=== PATIENT | male | born 1960 | race Caucasian/White ===

== ENCOUNTER → 2019-10-04 12:05 | Outpatient (CLI) | payer SELFPAY ==
[2019-10-04 12:32] LABS: Bacteria 0 SEEN /hpf (None Seen); Mucous, Urine 0 SEEN /hpf (<or=2+); Red Blood Cells-Urine 0 SEEN /hpf (0-5); White Blood Cells 0 SEEN /hpf (0-5)
[2019-10-04 15:07] LABS: Absolute Lymphocyte Count 2.71 X10^3/uL (0.83-4.51); Basophil# 0.03 X10^3/uL; Basophil% 0.5 % (0-1); Eosinophil# 0.08 X10^3/uL; Eosinophils% 1.2 % (0-5); Hematocrit 49.5 % (40-54); Hemoglobin 16.7 g/dL (13.0-16.5); Lymphocyte # 2.71 X10^3/ul (4.0); Lymphocyte % 42.1 % (19-41); Mean Corp Hgb Conc 33.7 g/dL (32-36); Mean Corpuscular Volume 88.9 fL (80-94); Mean Platelet Vol. 9.8 fl (6.2-12.0); Monocyte# 0.62 X10^3/uL; Monocyte% 9.6 % (0-10); NRBC Flagged by Analyzer 0 % (0-5); Neutrophil # 2.98 X10^3/uL (2.7-7.7); Neutrophil % 46.4 % (47-70); Platelet Count 294 K/mm3 (150-450); RBC Distribution Width CV 12.3 % (11.6-14.6); RBC Distribution Width SD 39.8 fl (35.1-43.9); Red Blood Count 5.57 M/mm3 (4.6-6.2); White Blood Count 6.4 K/mm3 (4.4-11.0)
[2019-10-04 15:09] LABS: Color, Urine Yellow (Yellow); Glucose, Dipstick Normal (Normal); Ketone-Dipstick Negative (Negative); Leukocyte Esterase-Dipstick Negative /ul (Negative); Nitrite-Dipstick Negative (Negative); Occult Blood-Urine Negative /ul (Negative); Protein-Dipstick Negative (Negative); Urine Bilirubin Dipstick Negative (Negative); Urine Clarity Sl. Cloudy (Clear); Urine Urobilinogen Normal (Normal)
[2019-10-04 15:19] LABS: Squamous Epithelial Cells - UA 0-5 SEEN /hpf (0-5)
[2019-10-04 15:37] LABS: AST(SGOT) 22 U/L (15-37); Alanine Aminotransfer ALT/SGPT 38 U/L (16-61); Albumin, Serum 3.9 g/dL (3.2-5.0); Alkaline Phosphatase 86 U/L (45-117); Anion Gap 8 (5-15); BUN 13 mg/dL (7-18); BUN/Creat Ratio 11.4 RATIO (10-20); Calcium,Total 9.1 mg/dL (8.5-10.1); Chloride 105 mmol/L (98-107); Creatinine, Serum 1.14 mg/dL (0.70-1.30); EST Glomerular Filtration Rate 70 mL/min (>60); Est Glom Filt Rate - Afr Amer 85 mL/min (>60); Glucose 87 mg/dL (74-106); Protein, Total 7.9 g/dL (6.4-8.2); Sodium Level 138 mmol/L (136-145); Thyroid Stim Hormone (TSH) 1.91 uIU/mL (0.358-3.74)
== END ==
PROVIDERS: PCP Family Medicine; Referring Provider Family Medicine; Visit Provider Family Medicine
DX: I10 Essential (primary) hypertension (principal)
CPT/HCPCS: 36415; 80053; 81001; 84443; 85025

== ENCOUNTER 2019-10-04 21:52 | Emergency (ER) | payer SELFPAY ==
[2019-10-04 21:53] VITALS: BP 142/88; PULSE 68; RESP 16; TEMP 36.3; O2SAT 93; BMI 30.2
--- NOTE | 2019-10-04 22:18 | EKG12_ITS ---
Test Reason : ABD PAIN Blood Pressure : / mmHG Vent. Rate : 058 BPM Atrial Rate : 058 BPM P-R Int : 160 ms QRS Dur : 148 ms QT Int : 444 ms P-R-T Axes : 020 -10 006 degrees QTc Int : 435 ms Sinus bradycardia Right bundle branch block Inferior infarct (cited on or before 04-OCT-2019) Abnormal ECG Confirmed by CHRISTIANO CAMARILLO ([id number]), manuscript editor ROEL DUARTE ([id number]) on 10/05/2019 2:27:54 PM Referred By: ALFIE Confirmed By:CHRISTIANO CAMARILLO
[2019-10-04] MEDS: 0.9% Normal Saline 1,000 ML 1000 ML IV (22:37)
[2019-10-04] MEDS: Mag Hydrox/Al Hydrox/Simeth 30 ML UDC PO (22:38)
[2019-10-04 22:57] LABS: Absolute Lymphocyte Count 2.97 X10^3/uL (0.83-4.51); Absolute Neutrophil Count 6.4 X10^3/uL (2.0-7.7); Basophil# 0.03 X10^3/uL; Basophil% 0.3 % (0-1); Eosinophil# 0.15 X10^3/uL; Eosinophils% 1.5 % (0-5); Hemoglobin 16.3 g/dL (13.0-16.5); Lymphocyte # 2.97 X10^3/ul (4.0); Lymphocyte % 28.9 % (19-41); Mean Corp Hgb Conc 33.3 g/dL (32-36); Mean Corpuscular Hgb 29.9 pg (27.0-32.0); Mean Corpuscular Volume 89.7 fL (80-94); Mean Platelet Vol. 9.6 fl (6.2-12.0); Monocyte# 0.74 X10^3/uL; Monocyte% 7.2 % (0-10); NRBC Flagged by Analyzer 0 % (0-5); Neutrophil # 6.36 X10^3/uL (2.7-7.7); Neutrophil % 61.8 % (47-70); Platelet Count 307 K/mm3 (150-450); RBC Distribution Width CV 12.4 % (11.6-14.6); Red Blood Count 5.46 M/mm3 (4.6-6.2); White Blood Count 10.3 K/mm3 (4.4-11.0)
--- NOTE | 2019-10-04 23:02 | RAD_ITS ---
STUDY: X-RAY CHEST REASON FOR EXAM: Male, 58 years old. Left-sided abdominal pain. TECHNIQUE: Single AP portable view of the chest. COMPARISON: December 11, 2010. FINDINGS: Slightly decreased inspiratory effort when compared to prior study. There is no new mass or infiltrate within the lungs. There is no demonstrated pleural abnormality. Normal size heart. Normal mediastinum and ekaterina. Normal visualized pulmonary arteries. Normal visualized aortic arch and descending thoracic aorta. The thoracic spine is obscured by the mediastinum. Normal visualized ribs, clavicles, and shoulders. There is no demonstrated abnormality of the visualized soft tissue structures of the upper abdomen. RAD/Chest 1 View (Portable) IMPRESSION: No acute cardiopulmonary disease or major interval change. Electronically Signed: Charlie Gongora DO at 23:20 EST Tel [phone], Service support ,
[2019-10-04 23:15] LABS: AST(SGOT) 22 U/L (15-37); Alanine Aminotransfer ALT/SGPT 39 U/L (16-61); Albumin, Serum 3.6 g/dL (3.2-5.0); Alkaline Phosphatase 102 U/L (45-117); Anion Gap 4 (5-15); BUN 21 mg/dL (7-18); BUN/Creat Ratio 16.4 RATIO (10-20); Bilirubin, Direct < 0.05 mg/dL (0.00-0.30); Calcium,Total 9.5 mg/dL (8.5-10.1); Chloride 107 mmol/L (98-107); Creatinine, Serum 1.28 mg/dL (0.70-1.30); EST Glomerular Filtration Rate 62 mL/min (>60); Est Glom Filt Rate - Afr Amer 75 mL/min (>60); Estimated Creatinine Clearance 64.44 ml/min; Globulin 3.9 g/dL (2.2-4.2); Glucose 143 mg/dL (74-106); Lipase 242 U/L (73-393); Potassium 4.1 mmol/L (3.5-5.1); Protein, Total 7.5 g/dL (6.4-8.2); Sodium Level 140 mmol/L (136-145)
--- NOTE | 2019-10-04 23:41 | ED.DCSUM_ITS ---
- ER Visit Summary Date of Service: 10/04/19 Chief Complaint: Abdominal pain History of Present Illness: The patient is a [address] Tolentino. He reports that he has epigastric abdominal pain that began at 7 PM. He describes it as a dull pressure. Stated 10 worsened. 10 currently. Is worsened by s itting up. Is relieved by pressure. He denies any nausea, vomiting, or diarrhea. Last bowel was yesterday. Typically goes daily. Denies any blood in stools or black tarry stools. No dysuria or frequency. Patient reports is been having abdominal pain off and on for the past 2 weeks approximately 15 to 20 minutes after eating. Does not matter what he eats or drinks this occurs. Does report that he has a history of spicy food intolerance. He denies any fatty food intolerance. Patient also reports that approximately 2 weeks ago when this began after he began drinking 2 tablespoons of apple cider vinegar a day. Patient also reports that he has chest pain that began yesterday when he went to bed. It was 3 out of 10 at worst. He is pain-free currently. States that he has exercised today and had no chest pain while he exercise. His pain is only occurring at rest and is worsened by laying down. Physical Examination: Vitals: Stable. Afebrile. General: Well-nourished and well-developed. Head: Normocephalic atraumatic. Neck: Supple, no lymphadenopathy. No JVD. Nontender. Cardiovascular: Regular rate and rhythm. No murmurs. Respiratory: No respiratory distress. Clear to auscultation bilaterally. Abdominal: Soft, mild epigastric tenderness to palpation, nondistended, normal bowel sounds. No guarding, rebound, or peritoneal signs. Back: Nontender. Extremities: Nontender, no edema. Skin: Normal color, no rash. Neurologic: Alert and oriented ?3. Cranial nerves II through XII are intact. Normal strength and sensation. Psych: Normal affect. Test Results: Chest x-ray is normal. EKG is sinus bradycardia 58 with a right bundle branch block. There is no old for comparison. Troponin is negative. LFTs are normal. Lipase normal. Chem-7 shows a glucose 143 and BUN 21. CBC is normal. Emergency Department Course and Treatment: Patient was given a dose of Zofran IV and a GI cocktail. He feels much relief. Treatment Plan: Patient be discharged with Nexium. Instructed to follow-up his primary care physician in 3 to 5 days for another exam. Return to the emergency department for any worsening symptoms. Disposition: To home in improved and stable condition. Impression: 1. Epigastric pain. 2. Atypical chest pain. 3. Heart score of 3. This note was generated with [employer] dictation software. It may contain incorrect words, spelling, and punctuation that were not noted in review of the chart prior to signing ED Disposition - Plan for ED Patient: Disposition: Home or Assisted Living Instructions: GASTRITIS vs. ULCER Prescriptions: Esomeprazole Mag Trihydrate [Nexium] 20 mg PO DAILY #30 cap Prescription Printed Referrals: Jose J Flores MD [Primary Care Provider] - 1 Week
[2019-10-05 00:02] VITALS: BP 135/86; PULSE 76; RESP 16; O2SAT 97
== END 2019-10-05 00:03 | disposition home or self-care (01) ==
LOC: ED 22:48
PROVIDERS: Emergency Provider Emergency Medicine; PCP Family Medicine
DX: R10.13 Epigastric pain (principal); R07.89 Other chest pain; I45.10 Unspecified right bundle-branch block; R00.1 Bradycardia, unspecified; I10 Essential (primary) hypertension; F41.9 Anxiety disorder, unspecified; Z79.899 Other long term (current) drug therapy
CPT/HCPCS: 71045; 80048; 80076; 83690; 84484; 85025; 93005; 96360; 99283; J7030; A4216; J2405

== ENCOUNTER → 2021-05-24 08:41 | Outpatient (CLI) | payer SELFPAY ==
--- NOTE | 2021-05-24 09:02 | RAD_ITS ---
STUDY: X-RAY - ACUTE ABDOMINAL SERIES REASON FOR EXAM: Male, 60 years old. ABDOMINAL PAIN TECHNIQUE: Single view of the chest. Supine, and erect view(s) of the abdomen were obtained. COMPARISON: 10/04/2019 FINDINGS: The lungs are clear and expanded. Normal size heart. Normal mediastinum and ekaterina. Normal visualized pulmonary arteries. Normal visualized aortic arch and descending thoracic aorta. There is a non-specific bowel gas pattern. The soft tissue structures of the abdomen and pelvis are unremarkable. Normal visualized osseous structures. RAD/Acute Abdomen Inc Chest IMPRESSION: No acute abnormal finding the chest, abdomen, or pelvis. Electronically Signed: Shoaib Diaz MD at 1:07 EDT Tel , Service support ,
== END ==
PROVIDERS: PCP Family Medicine; Referring Provider Family Medicine; Visit Provider Family Medicine
DX: R10.9 Unspecified abdominal pain (principal)
CPT/HCPCS: 74022

== ENCOUNTER 2021-09-16 19:44 | Observation (INO) | payer SELFPAY ==
[2021-09-16] VITALS (9 sets, daily range): BP systolic 132–164; BP diastolic 82–102; PULSE 56–67; RESP 16–20; TEMP 35.6–36.6; O2SAT 94–100; BMI 30.4; BMI 29.6
--- NOTE | 2021-09-16 20:23 | EKG12_ITS ---
Test Reason : CP ADMIT Blood Pressure : / mmHG Vent. Rate : 060 BPM Atrial Rate : 060 BPM P-R Int : 152 ms QRS Dur : 146 ms QT Int : 448 ms P-R-T Axes : 021 -13 001 degrees QTc Int : 448 ms Normal sinus rhythm Right bundle branch block Abnormal ECG Confirmed by HALINA SHAY, ANNABELLA ([id number]), editorial specialist JACLYN SCHMID ([id number]) on 09/18/2021 12:44:55 PM Referred By: MACHO Confirmed By:ANNABELLA MEADE MD
--- NOTE | 2021-09-16 20:24 | ED.VIS.CHEST ---
HPI History of Present Illness Chief Complaint: Chest Pain Informant: patient Onset/Context/Timing Onset: Weeks Current Severity: Mild Maximum Severity: Moderate Narrative Narrative: Patient present secondary to chest pain. He does note increased chest pressure with activity last couple weeks. He will get chest heaviness and pressure that does radiate down the left arm. Last evening with physical exertion he noted significant chest pain. He saw his PCP today who recommended he come in for evaluation of potential stress test. [facility] Medical History Hypertension Home Medications buspirone 15 mg PO BID 10/04/19 [History Last Taken Unknown] cannabidiol 1,500 mg PO DAILY 10/04/19 [History Last Taken Unknown] esomeprazole magnesium 20 mg PO DAILY #30 cap 10/04/19 [Rx Last Taken Unknown] garlic 1 ea PO DAILY 10/04/19 [History Last Taken Unknown] lactobacillus combination no.4 1 ea PO DAILY 10/04/19 [History Last Taken Unknown] metoprolol succinate 25 mg PO DAILY 10/04/19 [History Last Taken Unknown] niacin 250 mg PO DAILY 10/04/19 [History Last Taken Unknown] omega-3 fatty acids-fish oil 1 ea PO DAILY 10/04/19 [History Last Taken Unknown] Allergy/AdvReac Type Severity Reaction Status Date / Time sulfamethoxazole Allergy Rash Verified 10/04/19 21:53 [From Bactrim] trimethoprim [From Bactrim] Allergy Rash Verified 10/04/19 21:53 Social History Smoking Status: Never smoker ROS ROS ED Constitutional Constitutional ED: Denies chills or fever(s) Eyes Eyes: Denies change in vision ENT ENT ED: Denies sore throat Cardiovascular Cardiovascular: Reports chest pain Respiratory/Chest Respiratory/Chest: Reports dyspnea; Denies cough Gastrointestinal Gastrointestinal: Denies abdominal pain, nausea or vomiting Genitourinary Genitourinary ED: Denies dysuria Musculoskeletal Musculoskeletal: Denies back pain Integumentary Denies rash Neurologic Neurologic: Denies headache(s) Allergic/Immunologic Allergic/Immunologic ED: Denies urticaria EXAM Physical Exam Const Vital Signs: 09/16/21 19:46 09/16/21 19:49 09/16/21 20:44 Temperature 96.1 F L 96.1 F L Temperature Source Temporal Temporal Pulse Rate 65 65 Respiratory Rate 16 16 Respiratory Effort Normal Non-Labored Blood Pressure 164/102 H 164/102 H Blood Pressure Mean 122 122 Pulse Ox 98 98 94 Oxygen Delivery Method Room Air Room Air Room Air 09/16/21 20:47 Temperature Temperature Source Pulse Rate 66 Respiratory Rate 18 Respiratory Effort Blood Pressure 132/92 H Blood Pressure Mean 105 Pulse Ox 97 Oxygen Delivery Method Room Air Positive well nourished and well developed General Appearance ED: well developed HEENT normocephalic and atraumatic Eyes PERRL and EOMs intact bilaterally Neck no lymphadenopathy and supple Chest Wall inspection of chest normal and palpation of chest normal Resp normal respiratory effort Effort and Inspection: respiratory distress Cardio regular rate and regular rhythm GI normal to inspection, nondistended, normoactive bowel sounds, soft to palpation and non-tender Extremity normal to inspection Neuro oriented x3 Sensorium / Orientation: awake and alert Psych mental status grossly normal Skin no rashes or lesions noted Heart Score History: Highly Suspicious ECG: Nonspecific Repolarization Age: >45 - <65 years Risk Factors: >/= 3 Risk Factors or History of CAD Troponin: </= Normal Limit Score: 6 MDM MDM MDM Narrative Medical decision making narrative: Patient given aspirin. Lab work, EKG, chest x-ray obtained. Lab Data Attestation: I reviewed the patient's lab results. Labs: Laboratory Results - last 24 hr 09/16/21 09/16/21 20:25 20:25 WBC 8.0 RBC 5.24 Hgb 16.5 Hct 46.0 MCV 87.8 MCH 31.5 MCHC 35.9 RDW Std Deviation 42.1 RDW Coeff of Benny 13.0 Plt Count 324 MPV 9.4 Immature Gran % (Auto) 0.200 Neut % (Auto) 50.8 Lymph % (Auto) 36.8 [place] % (Auto) 9.4 Eos % (Auto) 2.4 Baso % (Auto) 0.4 Absolute Neuts (auto) 4.1 Absolute Lymphs (auto) 2.95 Nucleated RBC % 0 Sodium 137 Potassium 3.8 Chloride 106 Carbon Dioxide 28.0 Anion Gap 3 L BUN 19 H Creatinine 1.33 H Estim Creat Clear Calc 60.54 Est GFR (MDRD) Af Amer 71 Est GFR (MDRD) Non-Af 59 L BUN/Creatinine Ratio 14.3 Glucose 149 H Calcium 9.0 Troponin I High Sens < 3 L Radiography Chest X-Ray - ED: 1 View, Read by ED Physician, Normal, Heart, Lungs and Mediastinum EKG Initial EKG: Attestation: I personally reviewed and interpreted this EKG as follows: Interpretation: Sinus Rhythm (Sinus at 62 with right bundle branch block noted. This is unchanged compared to prior study of October 2019.) Treatment and Re-Evaluation Comments:: Repeat evaluation patient resting comfortably. Test results reviewed. At this time no evidence of cardiac damage. Patient does have a concerning story with a strong family history. His heart score is 6. I did recommend observation for cycling of enzymes and probable stress test. I will speak with the hospitalist. Discharge Plan Dx/Rx/DC Orders Clinical Impression: Chest pain Disposition Disposition: Acute Care Hospital [facility]
[2021-09-16] MEDS: Aspirin 81 MG TAB.CHEW 324 MG PO (20:41)
[2021-09-16 20:42] LABS: Absolute Lymphocyte Count 2.95 X10^3/uL (0.83-4.51); Absolute Neutrophil Count 4.1 X10^3/uL (2.0-7.7); Basophil# 0.03 X10^3/uL; Basophil% 0.4 % (0-1); Eosinophil# 0.19 X10^3/uL; Eosinophils% 2.4 % (0-5); Hemoglobin 16.5 g/dL (13.0-16.5); Lymphocyte # 2.95 X10^3/ul (0.83-4.51); Lymphocyte % 36.8 % (19-41); Mean Corp Hgb Conc 35.9 g/dL (32-36); Mean Corpuscular Hgb 31.5 pg (27.0-32.0); Mean Corpuscular Volume 87.8 fL (80-94); Mean Platelet Vol. 9.4 fl (6.2-12.0); Monocyte# 0.75 X10^3/uL; Monocyte% 9.4 % (0-10); NRBC Flagged by Analyzer 0 % (0-5); Neutrophil # 4.08 X10^3/uL (2.7-7.7); Neutrophil % 50.8 % (47-70); Platelet Count 324 K/mm3 (150-450); RBC Distribution Width SD 42.1 fl (35.1-43.9); Red Blood Count 5.24 M/mm3 (4.6-6.2)
--- NOTE | 2021-09-16 20:56 | RAD_ITS ---
INDICATION: chest pain EXAMINATION/TECHNIQUE: X-RAY - XR Chest 1 View COMPARISON: 10/04/2019 chest x-ray and 05/24/2021 chest x-ray FINDINGS: LINES/DEVICES: None. LUNGS: Symmetric normal lung volumes. No airspace opacity or abnormal interstitial pattern. No nodule or mass. No pleural effusion or pneumothorax. MEDIASTINUM AND CARDIOVASCULAR STRUCTURES: Normal size and contour of the cardiomediastinal silhouette. No evidence of pulmonary vascular congestion. BONES AND SOFT TISSUES: No abnormality within limits of the exam. RAD/Chest 1 View (Portable) IMPRESSION: 1. No radiographic evidence of acute cardiopulmonary disease. Electronically Signed: Alton Balbuena DO at 22:25 EST ,
[2021-09-16 21:16] LABS: Anion Gap 3 (5-15); BUN 19 mg/dL (7-18); BUN/Creat Ratio 14.3 RATIO (10-20); Chloride 106 mmol/L (98-107); Creatinine, Serum 1.33 mg/dL (0.70-1.30); EST Glomerular Filtration Rate 59 mL/min (>60); Est Glom Filt Rate - Afr Amer 71 mL/min (>60); Estimated Creatinine Clearance 60.54 ml/min; Glucose 149 mg/dL (74-106); Potassium 3.8 mmol/L (3.5-5.1); Sodium Level 137 mmol/L (136-145); Troponin-I HS < 3 pg/mL (3.0-78.0)
[2021-09-16 22:35] LABS: Troponin-I HS < 3 pg/mL (3.0-78.0)
--- NOTE | 2021-09-16 22:50 | HP.PCM_ITS ---
Documented by User: SOPHIA Samuels 09/17/21 01:00 HPI - General General Date of Admission: 09/16/21 Date of Service: 09/16/21 Chief Complaint: Chest pain HPI Narrative MEDINA APPIAH, is a 60 M who presents with complaints of chest pain. Patient states that he has noted increased chest pressure when doing physical activities. Patient states that his gotten progressively worse over the past couple weeks. Patient states that when he is very active he gets chest pressure over the left side of his chest and down his left arm and when he rests the pain improves significantly however does not completely go away. Patient was seen by his PCP who directed him to come to the ER for further evaluation. Patient reports that he has a history of hypertension however he does admit to being noncompliant with his hypertensive medications. Patient also reports a strong family history however denies personal history of CAD. [facility] Medical History Hypertension Home Medications buspirone 15 mg PO BID 10/04/19 [History Last Taken Unknown] cannabidiol 1,500 mg PO DAILY 10/04/19 [History Last Taken Unknown] esomeprazole magnesium 20 mg PO DAILY #30 cap 10/04/19 [Rx Last Taken Unknown] garlic 1 ea PO DAILY 10/04/19 [History Last Taken Unknown] lactobacillus combination no.4 1 ea PO DAILY 10/04/19 [History Last Taken Unknown] metoprolol succinate 25 mg PO DAILY 10/04/19 [History Last Taken Unknown] niacin 250 mg PO DAILY 10/04/19 [History Last Taken Unknown] omega-3 fatty acids-fish oil 1 ea PO DAILY 10/04/19 [History Last Taken Unknown] Allergy/AdvReac Type Severity Reaction Status Date / Time sulfamethoxazole Allergy Rash Verified 10/04/19 21:53 [From Bactrim] trimethoprim [From Bactrim] Allergy Rash Verified 10/04/19 21:53 Social History (Updated 09/16/21 @ 22:52 by FARIBA SamuelsC) Smoking Status: Former smoker alcohol intake: current alcohol intake frequency: 0-2 drinks per day Alcohol type: beer substance use type: does not use ROS Constitutional Constitutional: Denies anorexia, chills, fatigue, fever(s), malaise or weakness Cardiovascular Cardiovascular: Reports chest pain, chest pain with activity, hypertension and radiating jaw, neck or arm pain; Denies edema or palpitations Respiratory/Chest Respiratory/Chest: Denies cough, shortness of breath at rest, shortness of breath with exertion or wheezing Gastrointestinal Gastrointestinal: Denies abdominal pain, constipation, diarrhea, nausea or vomiting Genitourinary Genitourinary: Denies dysuria Musculoskeletal Musculoskeletal: Denies back pain, extremity pain, joint pain, joint stiffness or joint swelling Integumentary Integumentary: Denies dry skin Neurologic Neurologic: Denies abnormal gait, abnormal speech, confusion, dizziness or focal weakness Psychiatric Psychiatric: Denies anxiety or depression Endocrine Endocrinology: Denies change in body appearance Hematologic/Lymphatic Hematologic/Lymphatic: Denies anemia, easy bleeding or easy bruising Vital Signs Vital Signs Vital Signs: 09/16/21 19:46 09/16/21 19:49 09/16/21 20:44 Temperature 96.1 F L 96.1 F L Temperature Source Temporal Temporal Pulse Rate 65 65 Respiratory Rate 16 16 Respiratory Effort Normal Non-Labored Blood Pressure 164/102 H 164/102 H Blood Pressure Mean 122 122 Pulse Ox 98 98 94 Oxygen Delivery Method Room Air Room Air Room Air 09/16/21 20:47 Temperature Temperature Source Pulse Rate 66 Respiratory Rate 18 Respiratory Effort Blood Pressure 132/92 H Blood Pressure Mean 105 Pulse Ox 97 Oxygen Delivery Method Room Air Weight Weight: 205 lb 11.06 oz Body Mass Index (BMI) 30.4 Physical Exam Const alert, oriented x3 and no apparent distress General Appearance: cooperative HEENT normocephalic and head/scalp atraumatic Eyes conjunctivae normal and no scleral icterus Neck supple General: trachea midline Lymph Lymphatic: no lymphadenopathy noted Resp normal respiratory effort, normal air movement and clear to auscultation bilaterally Cardio regular rate, regular rhythm, S1 normal heart sound, S2 normal heart sound and peripheral pulses 2+ throughout GI normal to inspection, nondistended, normoactive bowel sounds, soft to palpation and non-tender Extremity normal capillary refill and no clubbing, cyanosis or edema General Extremity: no tenderness to palpation of joints or extremities Skin General Skin Exam: no breakdown and turgor normal Lesions: no lesions Rashes: no rashes Neuro no focal motor deficits and no sensory deficits noted Speech: speech normal Motor Exam: Negative for general weakness Psych thought process normal, cooperative and affect normal Appearance: appropriate Results Lab / Micro Data Result Diagrams: 09/16/21 20:25 09/16/21 20:25 Labs: Laboratory Results - last 24 hr 09/16/21 20:25: WBC 8.0, RBC 5.24, Hgb 16.5, Hct 46.0, MCV 87.8, MCH 31.5, MCHC 35.9, RDW Std Deviation 42.1, RDW Coeff of Benny 13.0, Plt Count 324, MPV 9.4, Immature Gran % (Auto) 0.200, Neut % (Auto) 50.8, Lymph % (Auto) 36.8, [place] % (Auto) 9.4, Eos % (Auto) 2.4, Baso % (Auto) 0.4, Absolute Neuts (auto) 4.1, Absolute Lymphs (auto) 2.95, Nucleated RBC % 0 09/16/21 20:25: Sodium 137, Potassium 3.8, Chloride 106, Carbon Dioxide 28.0, Anion Gap 3 L, BUN 19 H, Creatinine 1.33 H, Estim Creat Clear Calc 60.54, Est GFR (MDRD) Af Amer 71, Est GFR (MDRD) Non-Af 59 L, BUN/Creatinine Ratio 14.3, Glucose 149 H, Calcium 9.0, Troponin I High Sens < 3 L 09/16/21 22:05: Troponin I High Sens < 3 L Radiology Impression Chest X-Ray 09/16/21 20:56 IMPRESSION: 1. No radiographic evidence of acute cardiopulmonary disease. Electronically Signed: Alton Balbuena, at 22:25 EST , Assessment & Plan Assessment/Plan (1) Chest pain: QUALIFIERS: Chest pain type: unspecified Qualified Code(s): R07.9 - Chest pain, unspecified PLAN: 1. Chest pain -Admit to PCU CHACORTA score 2, heart score 4. -Trend cardiac enzymes, first 2 troponins negative -Therapeutic Lovenox subcu -N.p.o. after midnight pending stress test in a.m. -CBC BMP lipid profile ordered for a.m. -Daily weights -Nuclear treadmill stress test ordered for a.m. -Normal saline 50 mL/h ordered 2. Hypertension -Currently stable, vital signs per protocol -Continue home regimen metoprolol, patient admits to noncompliance at home with medication regimen DVT prophylaxis-therapeutic Lovenox This patient was seen by SOPHIA Samuels under the supervision of Dr. Butler. 27 minutes spent in clinical coordination of patient's plan of care. Documented by User: Dr. Ale Butler MD 09/17/21 01:47 HPI - General General Date of Admission: 09/16/21 [facility] Medical History Hypertension Home Medications buspirone 15 mg PO BID 10/04/19 [History Last Taken Unknown] cannabidiol 1,500 mg PO DAILY 10/04/19 [History Last Taken Unknown] esomeprazole magnesium 20 mg PO DAILY #30 cap 10/04/19 [Rx Last Taken Unknown] garlic 1 ea PO DAILY 10/04/19 [History Last Taken Unknown] lactobacillus combination no.4 1 ea PO DAILY 10/04/19 [History Last Taken Unknown] metoprolol succinate 25 mg PO DAILY 10/04/19 [History Last Taken Unknown] niacin 250 mg PO DAILY 10/04/19 [History Last Taken Unknown] omega-3 fatty acids-fish oil 1 ea PO DAILY 10/04/19 [History Last Taken Unknown] Allergy/AdvReac Type Severity Reaction Status Date / Time sulfamethoxazole Allergy Rash Verified 10/04/19 21:53 [From Bactrim] trimethoprim [From Bactrim] Allergy Rash Verified 10/04/19 21:53 Social History (Updated 09/16/21 @ 22:52 by Jen Norman NP-C) Smoking Status: Former smoker alcohol intake: current alcohol intake frequency: 0-2 drinks per day Alcohol type: beer substance use type: does not use Results Lab / Micro Data Result Diagrams: 09/16/21 20:25 09/16/21 20:25 Charges/Coding Addendum Addendum: This patient was seen in conjunction with Clarke Norman NP. I have independently interviewed and examined the patient and reviewed pertinent historical, laboratory, and other data. I have reviewed her note and concur with her documentation 60-year-old male with past medical history of hypertension who comes in with yamel st pain ongoing for weeks. Chest pain is noted on the left side, is worse with activity, improves with rest. He denied any diaphoresis or dizziness or leg swelling or PND. Admitting EKG showed no acute ST change. Vitals were stable Physical Exam: Gen: Comfortable, not pale, not jaundiced CVS:HS I +II, regular, no murmurs RESP: Diminished at lung bases GI: BS present and normal, soft, nontender, no palpable organs EXT:No edema Chest x-ray shows no acute cardiopulmonary disease. ASSESSMENT: 1. Chest pain 2. Hypertension 3. Anxiety Plan: Admit to PCU, trend troponins, monitor on telemetry Time spent coordinating patient's care, discussing with subspecialty and nursin minutes Visit Charges OBSV E&M: [id number] Initial observation care L2
--- NOTE | 2021-09-16 23:20 | EKG12_ITS ---
Test Reason : CP Blood Pressure : / mmHG Vent. Rate : 062 BPM Atrial Rate : 062 BPM P-R Int : 150 ms QRS Dur : 138 ms QT Int : 438 ms P-R-T Axes : 018 -16 016 degrees QTc Int : 444 ms Normal sinus rhythm Right bundle branch block Inferior infarct , cannot be excluded Abnormal ECG Confirmed by HALINA SHAY, ANNABELLA ([id number]), medical editor JACLYN SCHMID ([id number]) on 09/18/2021 11:42:24 AM Referred By: GRAZYNA Confirmed By:ANNABELLA MEADE MD
[2021-09-16] MEDS: 0.9% Normal Saline 1,000 ML 50 ML IV (23:54)
[2021-09-17] VITALS (8 sets, daily range): BP systolic 126–140; BP diastolic 64–87; PULSE 55–70; RESP 18; TEMP 36.6–36.7; O2SAT 93–98
[2021-09-17] MEDS: MELATONIN 3 MG TABLET PO
[2021-09-17 03:00] LABS: Absolute Lymphocyte Count 3.18 X10^3/uL (0.83-4.51); Absolute Neutrophil Count 2.5 X10^3/uL (2.0-7.7); Basophil# 0.03 X10^3/uL; Basophil% 0.5 % (0-1); Eosinophil# 0.21 X10^3/uL; Eosinophils% 3.2 % (0-5); Hematocrit 42.6 % (40-54); Hemoglobin 14.8 g/dL (13.0-16.5); Lymphocyte # 3.18 X10^3/ul (0.83-4.51); Lymphocyte % 48.5 % (19-41); Mean Corp Hgb Conc 34.7 g/dL (32-36); Mean Corpuscular Hgb 31.1 pg (27.0-32.0); Mean Corpuscular Volume 89.5 fL (80-94); Mean Platelet Vol. 9.3 fl (6.2-12.0); Monocyte# 0.68 X10^3/uL; Monocyte% 10.4 % (0-10); NRBC Flagged by Analyzer 0 % (0-5); Neutrophil # 2.45 X10^3/uL (2.7-7.7); Neutrophil % 37.2 % (47-70); Platelet Count 279 K/mm3 (150-450); RBC Distribution Width SD 42.8 fl (35.1-43.9); Red Blood Count 4.76 M/mm3 (4.6-6.2); White Blood Count 6.6 K/mm3 (4.4-11.0)
[2021-09-17 03:16] LABS: Troponin-I HS 4 pg/mL (3.0-78.0)
[2021-09-17 03:18] LABS: Anion Gap 4 (5-15); BUN 16 mg/dL (7-18); BUN/Creat Ratio 12.7 RATIO (10-20); Calcium,Total 8.5 mg/dL (8.5-10.1); Chloride 108 mmol/L (98-107); Cholesterol 234 mg/dL (200); Creatinine, Serum 1.26 mg/dL (0.70-1.30); EST Glomerular Filtration Rate 62 mL/min (>60); Est Glom Filt Rate - Afr Amer 75 mL/min (>60); Glucose 143 mg/dL (74-106); High Density Lipoprotein 34 mg/dL; Sodium Level 139 mmol/L (136-145); Triglycerides 336 mg/dL; Very Low Density Lipoprotein 67 mg/dL (5-40)
[2021-09-17] MEDS: Metoprolol(XL)Succ 25 MG Tablet PO (10:40)
--- NOTE | 2021-09-17 13:18 | STRESSREP_ITS ---
Stress Test Report Date: 08-17-2021 Procedure: Exercise tolerance test/imaging study Indications: Chest pain Consent: Per the patient Procedure: The patient exercised on a Jorge protocol for 7 minutes completing Stage II and 1 minute of Stage III achieving a peak heart rate of 142 bpm (87% predicted maximal heart rate) with a peak blood pressure 182/98 mmHg and a peak MET capacity of 9 METs. The baseline ECG demonstrated sinus rhythm; right bundle branch block pattern. The peak exercise ECG demonstrated no obvious ECG changes. There were no cardiac dysrhythmias pretest, during exercise, or recovery. The functional capacity was considered average. There was no complaint of chest discomfort during exercise or recovery. The examination was discontinued secondary to dyspnea. Impression: 1. Technically adequate (percent predicted maximal heart rate greater than 85%) exercise tolerance test 2. Peak exercise ECG with no obvious ECG changes 3. There were no cardiac dysrhythmias pretest, during exercise, or recovery 4. Nuclear images pending Myocardial perfusion imaging study: Technique: The patient was injected with 12.0 mCi of technetium 99m Cardiolite and subsequently rest SPECT Cardiolite nuclear imaging was obtained in the horizontal long, vertical long, and short axis views. The patient exercised on a Jorge protocol for 7 minutes completing Stage II and 1 minute of Stage III achieving a peak heart rate of 142 bpm (87% predicted maximal heart rate) with a peak blood pressure 182/98 mmHg and a peak MET capacity of 9 METs. The patient was injected with 33.1 mCi of technetium 99m Cardiolite and subsequently stress SPECT Cardiolite nuclear imaging was obtained in the horizontal long, vertical long, and short axis views. A gated Cardiolite study at peak stress was obtained. Interpretation: Rest and stress SPECT Cardiolite nuclear imaging status post realignment, normalization, and attenuation correction, demonstrates the appearance of relative uniform tracer uptake and myocardial perfusion appearing within normal limits. There is end systolic thickening and brightening. The gated Cardiolite study demonstrates myocardial thickening and inward wall motion. The reported LVEF is 67%. Impression: 1. Rest and stress SPECT Cardiolite nuclear imaging demonstrate relative uniform tracer uptake and myocardial perfusion appearing within normal limits. 2. The gated Cardiolite study reports an LVEF of 67%. This note was generated with [employer] software. It may contain incorrect words, spelling, and punctuation that were not noted in checking the note before signing.
--- NOTE | 2021-09-17 13:27 | PCM.DC ---
Discharge Instructions Diet Discharge Diet: Low fat / Low cholesterol Activity Discharge Activity: Return to Normal Activity Dressing / Incision Call your doctor if you observe: Shortness of breath, Dizziness and Chest pain Follow Up Care Test Results: Test results from this visit will be discussed in further detail at your follow-up appointment, if applicable. Discharge Plan Admission Admit Date/Time: 09/16/21 22:35 Primary Reason for Your Visit: Chest pain Attending Provider: Stevan Judge Primary Care Provider: Jose J Flores Discharge Orders/Prescriptions Prescriptions: Continued metoprolol succinate 25 MG tablet extended release 24 hr 25 mg PO DAILY RF: 0 buspirone 15 MG tablet 15 mg PO BID RF: 0 cannabidiol 100 MG/ML solution 1,500 mg PO DAILY RF: 0 niacin 250 MG tablet extended release 250 mg PO DAILY RF: 0 garlic 1 EACH tablet 1 ea PO DAILY RF: 0 omega-3 fatty acids-fish oil 1 EACH capsule 1 ea PO DAILY RF: 0 lactobacillus combination no.4 1 EACH capsule 1 ea PO DAILY RF: 0 esomeprazole magnesium 20 MG capsule 20 mg PO DAILY Qty: 30 RF: 0 Referrals / Follow Up: Jose J Flores MD [Primary Care Provider] - In 1 Week Disposition Disposition (needs filled in before D/C Order can be placed): Home, Self Care
--- NOTE | 2021-09-17 13:31 | DS.PCM_ITS ---
Documented by User: Chey Pena NP, NP-C 09/17/21 13:38 Providers Date of Admission: 09/16/21 Date of Discharge: 09/17/21 Primary Care Physician: Dr. Jose J Flores MD Reason For Visit: CHEST PAIN Diagnosis Discharge Diagnosis (1) Chest pain: Status: Acute Code(s): R07.9 - Chest pain, unspecified Qualifiers: Chest pain type: unspecified Qualified Code(s): R07.9 - Chest pain, unspecified Medications at Discharge Home Medications buspirone 15 mg PO BID 10/04/19 cannabidiol 1,500 mg PO DAILY 10/04/19 esomeprazole magnesium 20 mg PO DAILY #30 cap 10/04/19 garlic 1 ea PO DAILY 10/04/19 lactobacillus combination no.4 1 ea PO DAILY 10/04/19 metoprolol succinate 25 mg PO DAILY 10/04/19 niacin 250 mg PO DAILY 10/04/19 omega-3 fatty acids-fish oil 1 ea PO DAILY 10/04/19 Hospital Course Operations None Procedures Nuclear stress test Summary of Care Provided Hospital Course: Patient is a 60-year-old male admitted 09/16/21 due to chest pain. 1. Chest pain- ACS ruled out. Troponin negative. EKG without ST-T changes. Patient underwent nuclear stress test which was negative for ischemia. Follow up with PCP in one week. 2. Hypertension-stable, continue metoprolol. 3. GERD-continue PPI. 4. Anxiety-on buspirone. Patient seen and examined prior to discharge. Physical assessment as noted below. Patient is stable for discharge with follow up recommendations as noted above. This patient was seen by SOPHIA Kang under the supervision of Dr. Judge. Time spent examining patient, reviewing data and subsequent management of care: 13 Minutes Physical Exam Const alert, oriented x3 and no apparent distress Orientation / Consciousness: awake, oriented to person, oriented to place and o riented to time HEENT normocephalic and moist oral mucous membranes Eyes PERRL, EOMs intact bilaterally and conjunctivae normal Neck no lymphadenopathy Resp normal respiratory effort and clear to auscultation bilaterally Cardio regular rate, regular rhythm and no murmurs Peripheral Pulses: pulses 2+ throughout GI normal to inspection, nondistended, normoactive bowel sounds, non-tender and non-distended Extremity normal to inspection Skin no rashes or lesions noted Lesions: no lesions Rashes: no rashes Trauma: no lacerations or abrasions Neuro CN's II-XII intact bilaterally, no focal motor deficits, no sensory deficits noted and deep tendon reflexes 2+ bilaterally Psych mental status grossly normal and affect normal Weight / BMI Weight Weight: 200 lb 9.93 oz Body Mass Index (BMI) 29.6 ABG / Lab / Microbiology Data Result Diagrams: 09/17/21 02:51 09/17/21 02:51 Laboratory: Laboratory Results - last 24 hr 09/16/21 20:25: WBC 8.0, RBC 5.24, Hgb 16.5, Hct 46.0, MCV 87.8, MCH 31.5, MCHC 35.9, RDW Std Deviation 42.1, RDW Coeff of Benny 13.0, Plt Count 324, MPV 9.4, Immature Gran % (Auto) 0.200, Neut % (Auto) 50.8, Lymph % (Auto) 36.8, Early % (Auto) 9.4, Eos % (Auto) 2.4, Baso % (Auto) 0.4, Absolute Neuts (auto) 4.1, Absolute Lymphs (auto) 2.95, Nucleated RBC % 0 09/16/21 20:25: Sodium 137, Potassium 3.8, Chloride 106, Carbon Dioxide 28.0, Anion Gap 3 L, BUN 19 H, Creatinine 1.33 H, Estim Creat Clear Calc 60.54, Est GFR (MDRD) Af Amer 71, Est GFR (MDRD) Non-Af 59 L, BUN/Creatinine Ratio 14.3, Glucose 149 H, Calcium 9.0, Troponin I High Sens < 3 L 09/16/21 22:05: Troponin I High Sens < 3 L 09/17/21 02:51: WBC 6.6, RBC 4.76, Hgb 14.8, Hct 42.6, MCV 89.5, MCH 31.1, MCHC 34.7, RDW Std Deviation 42.8, RDW Coeff of Benny 13.0, Plt Count 279, MPV 9.3, Immature Gran % (Auto) 0.200, Neut % (Auto) 37.2 L, Lymph % (Auto) 48.5 H, Early % (Auto) 10.4 H, Eos % (Auto) 3.2, Baso % (Auto) 0.5, Absolute Neuts (auto) 2.5, Absolute Lymphs (auto) 3.18, Nucleated RBC % 0 09/17/21 02:51: Sodium 139, Potassium 4.0, Chloride 108 H, Carbon Dioxide 27.0, Anion Gap 4 L, BUN 16, Creatinine 1.26, Estim Creat Clear Calc 63.90, Est GFR (MDRD) Af Amer 75, Est GFR (MDRD) Non-Af 62, BUN/Creatinine Ratio 12.7, Glucose 143 H, Calcium 8.5, Triglycerides 336 H, Cholesterol 234 H, LDL Cholesterol 133 H, VLDL Cholesterol 67 H, HDL Cholesterol 34 L 09/17/21 02:51: Troponin I High Sens 4 Radiography Diagnostic Testing: Radiology Impression Chest X-Ray 09/16/21 20:56 IMPRESSION: 1. No radiographic evidence of acute cardiopulmonary disease. Electronically Signed: Alton Balbuena DO at 22:25 EST , D/C Instructions Discharge Diet: Low fat / Low cholesterol Call your doctor if you observe: Shortness of breath, Dizziness and Chest pain Meaningful Use Info Meaningful Use Diagnoses (Choose all that apply): None applicable Discharge Plan Admission Admit Date/Time: 09/16/21 22:35 Primary Reason for Your Visit: Chest pain Attending Provider: Stevan Judge Primary Care Provider: Jose J Flores Discharge Orders/Prescriptions Prescriptions: Continued metoprolol succinate 25 MG tablet extended release 24 hr 25 mg PO DAILY RF: 0 buspirone 15 MG tablet 15 mg PO BID RF: 0 cannabidiol 100 MG/ML solution 1,500 mg PO DAILY RF: 0 niacin 250 MG tablet extended release 250 mg PO DAILY RF: 0 garlic 1 EACH tablet 1 ea PO DAILY RF: 0 omega-3 fatty acids-fish oil 1 EACH capsule 1 ea PO DAILY RF: 0 lactobacillus combination no.4 1 EACH capsule 1 ea PO DAILY RF: 0 esomeprazole magnesium 20 MG capsule 20 mg PO DAILY Qty: 30 RF: 0 Referrals / Follow Up: Jose J Flores MD [Primary Care Provider] - In 1 Week Disposition Disposition (needs filled in before D/C Order can be placed): Home, Self Care Documented by User: Dr. Stevan Judge DO 09/17/21 15:59 Providers Date of Admission: 09/16/21 Reason For Visit: CHEST PAIN Medications at Discharge Home Medications buspirone 15 mg PO BID 10/04/19 cannabidiol 1,500 mg PO DAILY 10/04/19 esomeprazole magnesium 20 mg PO DAILY #30 cap 10/04/19 garlic 1 ea PO DAILY 10/04/19 lactobacillus combination no.4 1 ea PO DAILY 10/04/19 metoprolol succinate 25 mg PO DAILY 10/04/19 niacin 250 mg PO DAILY 10/04/19 omega-3 fatty acids-fish oil 1 ea PO DAILY 10/04/19 Hospital Course Operations None Procedures Nuclear stress test Summary of Care Provided Minutes Spent on Discharge: 12 Hospital Course: This is a 60-year-old male presents with chest pain. Troponins were negative but patient stated that he had exertional chest pain with radiation to his left arm. Patient underwent a nuclear stress test today that was unremarkable. Discussed prior to the results being back and this could be GI related and recommended PPI therapy. If patient is refractory to that they may consider gastroenterology follow-up. Physical Exam Const alert and no apparent distress Resp normal respiratory effort, no retractions, no use of accessory muscles and clear to auscultation bilaterally Cardio regular rate, regular rhythm, S1 normal heart sound and S2 normal heart sound GI normal to inspection, nondistended, normoactive bowel sounds ABG / Lab / Microbiology Data Result Diagrams: 09/17/21 02:51 09/17/21 02:51 Discharge Plan Admission Admit Date/Time: 09/16/21 22:35 Primary Reason for Your Visit: Chest pain Attending Provider: Stevan Judge Primary Care Provider: Jose J Flores Discharge Orders/Prescriptions Prescriptions: Continued metoprolol succinate 25 MG tablet extended release 24 hr 25 mg PO DAILY RF: 0 buspirone 15 MG tablet 15 mg PO BID RF: 0 cannabidiol 100 MG/ML solution 1,500 mg PO DAILY RF: 0 niacin 250 MG tablet extended release 250 mg PO DAILY RF: 0 garlic 1 EACH tablet 1 ea PO DAILY RF: 0 omega-3 fatty acids-fish oil 1 EACH capsule 1 ea PO DAILY RF: 0 lactobacillus combination no.4 1 EACH capsule 1 ea PO DAILY RF: 0 esomeprazole magnesium 20 MG capsule 20 mg PO DAILY Qty: 30 RF: 0 Referrals / Follow Up: Jose J Flores MD [Primary Care Provider] - In 1 Week Disposition Disposition (needs filled in before D/C Order can be placed): Home, Self Care Charges/Coding Visit Charges OBSV E&M: 48117 Observation care discharge
--- NOTE | 2021-09-17 13:37 | CASEMGMT ---
SW met with patient. Introduced self and role at [facility]. SW asked patient if he has been managing okay paying for his prescriptions etc. Patient declined needing any financial resources. He did mention this hospital bill. SW let him know they can set him up on a payment plan. Yohana GARCIA
== END 2021-09-17 13:28 | disposition home or self-care (01) ==
LOC: ED 22:05 → PCU 09-17 00:01
PROVIDERS: Nurse Practitioner Family; Admitting Provider Internal Medicine; Emergency Provider Emergency Medicine; PCP Family Medicine
DX: R07.89 Other chest pain (principal); K21.9 Gastro-esophageal reflux disease without esophagitis; F41.9 Anxiety disorder, unspecified; I10 Essential (primary) hypertension; Z87.891 Personal history of nicotine dependence; Z79.899 Other long term (current) drug therapy; M79.602 Pain in left arm
CPT/HCPCS: 36415; 71045; 78452; 80048; 80061; 84484; 85025; 93005; 93017; 99218; 99283; A9500; J7030; A4216; G0378